=== PATIENT | female | born 1995 | race Caucasian/White ===

== ENCOUNTER 2018-01-05 11:06 | Inpatient (IN) | payer BC, MEDICAID ==
[~2018-01-05] VITALS: Ht 149.9 cm; Wt 88.6 kg
[2018-01-23] VITALS (57 sets, daily range): BP systolic 94–142; BP diastolic 40–81; PULSE 67–94; TEMP 97.3–98.4
[2018-01-23] MEDS ORDERED: ZOLOFT 50MG50 MG PO (07:21)
[2018-01-23] MEDS ORDERED: PRENATAL (07:21)
[2018-01-23] MEDS ORDERED: PROFERRIN ES12 MG PO (07:22)
[2018-01-23 07:54] LABS: BASO % 0.3 % (0.0-2.0); EOS # 0.1 (0.0-0.7); GRAN # 6.4 (1.4-6.5); GRAN % 69.7 % (42.2-75.2); LYMPH # 1.9 (1.2-3.4); LYMPH % 20.5 % (20.0-51.0); MEAN CELL VOLUME 92 fl (80.0-100.0); MEAN CORPUSCULAR HGB CONC 34 g/dl (33.0-37.0); MEAN PLATELET VOLUME 10.6 fl (7.4-10.4); MONO # 0.7 (0.1-0.6); MONO % 7.1 % (1.7-9.3); PLATELET COUNT 192 K/mm3 (130-400); RED BLOOD COUNT 3.44 M/mm3 (4.10-5.30); REDCELL DISTRIBUTION WIDTH-CV 12.8 % (11.5-14.5)
[2018-01-23 07:57] LABS: HEMATOCRIT 31.6 % (37.0-47.0); HEMOGLOBIN 10.6 g/dl (12.5-16.0); MEAN CORPUSCULAR HEMOGLOBIN 31 pg (27.0-31.0)
[2018-01-24 04:00] VITALS: BP 105/44; PULSE 84
[2018-01-24 07:20] VITALS: BP 97/39; PULSE 86; TEMP 97.7
[2018-01-24 12:20] VITALS: BP 117/59; PULSE 85; TEMP 97.2
[2018-01-24 18:00] VITALS: BP 102/49; PULSE 87; TEMP 97.8
[2018-01-24 20:30] VITALS: BP 128/48; PULSE 97; TEMP 98.7
[2018-01-25 08:02] VITALS: BP 91/47; PULSE 84
[2018-01-25 15:38] VITALS: BP 123/74; PULSE 79; TEMP 98.4
[2018-01-25 19:45] VITALS: BP 111/61; PULSE 90; TEMP 98.2
[2018-01-26 08:30] VITALS: BP 110/64; PULSE 77; TEMP 98.2
[2018-01-26] MEDS ORDERED: PERCOCET 325 MG1 TA2 PO (08:39)
[2018-01-26] MEDS ORDERED: MOTRIN 800800 MG/TAB PO (08:39)
== END 2018-01-26 17:15 | disposition home or self-care (01) | DRG 766 ==
LOC: LDR 01-23 06:43 → OB 01-23 20:30 → EDSTATUS 01-28 07:34 → LDRO 01-28 11:06
PROVIDERS: Obstetrics & Gynecology
PROC: 10D00Z1 Extraction of Products of Conception, Low, Open Approach (ICD-10-PCS; principal; 2018-01-23)
PROC: 3E033VJ Introduction of Other Hormone into Peripheral Vein, Percutaneous Approach (ICD-10-PCS; 2018-01-23)
DX: O36.0130 Maternal care for anti-D [Rh] antibodies, third trimester, not applicable or unspecified (principal); O62.1 Secondary uterine inertia; O69.81X0 Labor and delivery complicated by cord around neck, without compression, not applicable or unspecified; Z3A.39 39 weeks gestation of pregnancy; Z37.0 Single live birth
CPT/HCPCS: J0171; J0690; J1885; J2270; J2370; J2400; J2405; J2550; J2590; J2791; J2795; J3010; J7120

== ENCOUNTER 2021-12-30 17:55 | Observation (INO) | payer SELFPAY ==
[~2021-12-30] VITALS: Ht 149.9 cm; Wt 65.9 kg
[~2021-12-30 17:55] MED LIST: MOTRIN 800800 MG/TAB PO; PERCOCET 325 MG1 TA2 PO; PRENATAL; PROFERRIN ES12 MG PO; ZOLOFT 50MG50 MG PO
[2021-12-30 22:25] VITALS: BP 96/49; PULSE 79; TEMP 98.5
[2021-12-30 22:36] VITALS: BP 96/49; PULSE 79; TEMP 98.5
[2021-12-30 22:49] VITALS: BP 96/46; PULSE 79; TEMP 98.5
[2021-12-30 23:10] VITALS: BP 90/59; PULSE 79; TEMP 98.5
--- NOTE | 2021-12-30 23:22 | NUR ---
PT ARRIVES TO MEDICAL FLOOR AT 2240 VIA BED BY PACU STAFF, PT VSS, SYSTOLIC LOW, PT AFEBRILE, PT A/OX4, DROWSY, COOPERATIVE AND PLEASANT. ASSESMENT COMPLETE. ABDOMEN HAS THREE INCISIONS WITH A BANDAID C/D/I, ABDOMEN DISTENDED, LR INFUSING AT 125 CC/HR TO RIGHT AC IV. PT REPORTS PAIN 6/10 TO ABDOMEN, MEDICATION ADMINISTERED ORDERED. SCANT BLEEDING FROM [place] PAD NOTED,MED REC COMPLETE. POC DISCUSSED WITH PT. ALL QUESTIONS/ANSWERS COMPLETE. ALL NEEDS MET AT THIS TIME. CALL LIGHT WITHIN REACH.
[2021-12-30 23:42] VITALS: BP 92/60; PULSE 79; TEMP 98.5
[2021-12-31 00:19] VITALS: BP 95/53; PULSE 79; TEMP 98.5
[2021-12-31 01:26] VITALS: BP 98/56; PULSE 79; TEMP 98.5
--- NOTE | 2021-12-31 01:47 | NUR ---
PT UP TO BATHROOM PAD IS SATURATED, PT ABLE TO URINATE W/O COMPLAINT. NEW PAD PLACED. PT AMBULATING WITHOUT ASSITANCE. INCISION SITES REMAN C/D/I.
[2021-12-31 01:53] VITALS: BP 95/53; PULSE 79; TEMP 98.5
[2021-12-31 03:55] VITALS: BP 85/45; PULSE 75; TEMP 98.4
--- NOTE | 2021-12-31 04:49 | NUR ---
PT IV DC'D D/T NOT BEING ABLE TO FLUSH, IV WAS IRRITATING PATIENT. PT UNDERSTANDS REASON FOR D/C.
--- NOTE | 2021-12-31 05:15 | NUR ---
PT INCISION SITE REMAINS C/D/I, PT REPORTS PAIN /10, MEDICATION ADMINISTERED ORDERED. ALL NEEDS MET THIS SHIFT. LEGS ELEVATED, HOB AT 30 DEGREES. PT EXPRESSES NO ADDITIONAL NEEDS AT THIS TIME. CALL LIGHT WITHIN REACH.
[2021-12-31 07:16] LABS: HEMATOCRIT 30.2 % (37.0-47.0); HEMOGLOBIN 9.9 g/dl (12.5-16.0)
[2021-12-31 07:30] VITALS: BP 88/51; PULSE 63; TEMP 98
--- NOTE | 2021-12-31 07:48 | NUR ---
Patient BP low. Dr. Foy made aware.
[2021-12-31] MEDS ORDERED: MOTRIN 800800 MG/TAB PO (08:07)
[2021-12-31] MEDS ORDERED: PERCOCET 325 MG1 TA2 PO (08:08)
--- NOTE | 2021-12-31 10:18 | NUR ---
Initial visit attempt; Patient sleeping, [employer] left card offering God's blessings and prayer.
--- NOTE | 2021-12-31 12:26 | NUR ---
Shift assessment completed. Scheduled medications given. Patient given prn pain medication for abdominal pain. Lap sites are dressed with a bandaide. Dressing is clean, dry, and intact. Patient deemed fit for discharge. Discharge education/instructions given. All questions answered. Patient is A&O. BP soft, provider aware. All other VSS. Patient denies any further pain, discomfort, SOA. or further needs at this time. Patient escorted from building via wheelchair, escorted by [facility] Staff. Family transporting home.
== END 2021-12-31 11:30 | disposition home or self-care (01) ==
LOC: COL.ER 17:55 → MEDICAL 21:36
PROVIDERS: ADMIT Obstetrics & Gynecology
DX: N83.01 Follicular cyst of right ovary (principal); R10.2 Pelvic and perineal pain; N83.291 Other ovarian cyst, right side; R18.8 Other ascites; D64.9 Anemia, unspecified
CPT/HCPCS: C1765; G0378; J1100; J1170; J1885; J2405; J2704; J2710; J3010; J7120